=== PATIENT | female | born 1960 | race Caucasian/White ===

== ENCOUNTER 2024-12-06 22:45 | Emergency (ER) | payer OTHER ==
[~2024-12-06] VITALS: Ht 157.5 cm; Wt 87.1 kg
[2024-12-06 22:45] VITALS: BP 150/86
[2024-12-06 23:53] LABS: PLATELET COUNT (AUTO) 221 K/uL (179-408); RED BLOOD CELL COUNT(AUTO) 4.89 MIL/uL (3.63-4.92); RED CELL DISTRIBUTION WIDTH 15.9 % (12.3-17.7); WHITE BLOOD COUNT (AUTO) 10.8 K/uL (3.8-11.8)
[2024-12-07 00:23] LABS: SODIUM SERUM 135.0 mmol/L (136-145)
[2024-12-07 00:24] LABS: CREATININE 0.8 mg/dL (0.6-1.3); UREA NITROGEN, BLOOD 11.0 mg/dL (7-18)
[2024-12-07 00:25] LABS: ASPARTATE AMINOTRANSFERASE 32.0 U/L (15-37); TOTAL PROTEIN, SERUM 7.2 g/dL (6.4-8.2)
[2024-12-07 00:52] VITALS: BP 150/86; O2SAT 98
== END 2024-12-07 00:52 | disposition home or self-care (01) ==
LOC: ER 22:52
DX: R06.02 Shortness of breath (principal); R53.83 Other fatigue; R53.1 Weakness; E03.9 Hypothyroidism, unspecified; M06.9 Rheumatoid arthritis, unspecified; G43.909 Migraine, unspecified, not intractable, without status migrainosus; Z85.6 Personal history of leukemia
CPT/HCPCS: 36415; 70450; 71045; 84484; 85025; A4606; A4663